=== PATIENT | female | born 1970 | race Caucasian/White ===

== ENCOUNTER 2024-09-30 09:15 | Outpatient (CLI) | payer OTHER, SELFPAY ==
--- OUTSIDE RECORDS SUMMARY | 2024-09-30 09:27 | XMS_ITS | Referral Summary ---
Author Organization [address] Address [address] [place] [id number] Care Team Providers Care Lead C Developer Name Role Phone Allen Carney MD Primary Care Provider [phone] Encounters Date Type Department Care Team Description 09/22/2024 4:15 PM CDT Office Visit [facility] Otolaryngology [address] [place] [phone] Jose Arango II, MD Right chronic serous otitis media (Primary Dx); Mixed conductive and sensorineural hearing loss of right ear with restricted hearing of left ear; Left chronic serous otitis media 09/22/2024 3:45 PM CDT Procedure visit [facility] Otolaryngology [address] [place] [phone] Carolin Waters Au.D. Mixed conductive and sensorineural hearing loss of left ear with restricted hearing of right ear (Primary Dx); Sensorineural hearing loss (SNHL) of right ear with restricted hearing of left ear 08/08/2024 11:30 AM CDT Office Visit [facility] Otolaryngology [address] [place] [phone] Jose Arango II, MD Right chronic serous otitis media (Primary Dx); Mixed conductive and sensorineural hearing loss of right ear with restricted hearing of left ear 08/08/2024 11:00 AM CDT Procedure visit [facility] Otolaryngology [address] [place] [phone] Norma Thompson Mixed conductive and sensorineural hearing loss of right ear with restricted hearing of left ear (Primary Dx) from Last 3 Months Allergies No known active allergies Medications No known medications Active Problems Problem Noted Date Diagnosed Date Left chronic serous otitis media 09/23/2024 Sensorineural hearing loss (SNHL) of both ears 1 06/10/2022 Right chronic serous otitis media 12/13/2021 Mixed conductive and sensori neural hearing loss of right ear with restricted hearing of left ear 12/13/2021 Social History Tobacco Use Types Packs/Day Years Used Date Smoking Tobacco: Never Smokeless Tobacco: Never Tobacco Cessation:Counseling Given: Not Answered Comments Unknown Sex and Gender Information Value Date Recorded Sex Assigned at Not on file Legal Sex Female 5:55 PM BILLET HEATER Gender Identity Not on file Sexual Orientation Not on file Last Filed Vital Signs Vital Sign Reading Time Taken Comments Blood Pressure - - Pulse - - Temperature 36.7 C (98 F) 04/22/2024 1:43 PM BILLET HEATER Respiratory Rate 18 09/22/2024 4:14 PM CDT Oxygen Saturation - - Inhaled Oxygen Concentration - - Weight 79.4 kg (175 lb) 09/22/2024 4:14 PM CDT Height 165.1 cm (5' 5 ) 09/22/2024 4:14 PM CDT Body Mass Index 29.12 09/22/2024 4:14 PM CDT Plan of Treatment Not on file Insurance CHOICE PLUS Care Teams Lead C Developer Relationship Specialty Start Date End Date Allen Carney MD [address] [place] [id number] PCP - General Family Medicine 09/05/22
--- OUTSIDE RECORDS SUMMARY | 2024-09-30 09:27 | XMS_ITS | Clinical Summary ---
Author Organization [facility] Address [address] [place] [address] Care Team Providers Care Brake Press Operator Name Role Phone Idania Caldwell PA-C Primary Care Provider [phone] Allergies No known active allergies Medications multi vitamin/minerals (THERA-M ENHANCED) tablet Take 1 tablet by mouth daily. Active predniSONE (DELTASONE) 10 mg tabletIndication s:Non-recurrent acute serous otitis media of both ears 2 pills twice daily for 3 days then 1 pill twice daily for 3 days then 1 pill daily for 2 days #20 20 tablet 08/17/2022 Active Active Problems No known active problems Family History Medical History Relation Comments Breast Cancer Neg Hx Social History Tobacco Use Types Packs/Day Years Used Date Smoking Tobacco: Never Smokeless Tobacco: Never Tobacco Cessation:Counseling Given: Not Answered Alcohol Use Standard Drinks/Week Comments Not Currently 0 (1 standard drink = 0.6 oz pur e alcohol) Comments No Sex and Gender Information Value Date Recorded Sex Assigned at Not on file Legal Sex Female 8:27 PM CDT Gender Identity Not on file Sexual Orientation Not on file Last Filed Vital Signs Vital Sign Reading Time Taken Comments Blood Pressure 127/81 08/17/2022 2:18 PM CDT Pulse 70 08/17/2022 2:18 PM CDT Temperature 37.2 C (99 F) 08/17/2022 2:18 PM CDT Respiratory Rate 18 08/17/2022 2:18 PM CDT Oxygen Saturation 100% 08/17/2022 2:18 PM CDT Inhaled Oxygen Concentration - - Weight 79.8 kg (176 lb) 08/17/2022 2:18 PM CDT Height 165.1 cm (5' 5 ) 08/17/2022 2:18 PM CDT Body Mass Index 29.29 08/17/2022 2:18 PM CDT Plan of Treatment Health Maintenance Due Date Last Done Comments Cervical Cancer Screening Pa p Smear (Age 30 to 64) Every 3 Years 1970 Colorectal Cancer Screening Colonoscopy (10 Years) 1970 Annual Physical 1973 Hepatitis C 1988 DTaP, Tdap and Td Vaccines ( 1 - Tdap) 1989 Hepatitis B Vaccines (1 of 3 - 19+ 3-dose series) 1989 Cervical Cancer Screening Pa p with HPV Testing (Age 30 to 64) Every 5 Years 2000 Cervical Cancer Screening wi th HPV 2000 Pneumococcal Vaccine: 50+ Years (1 of 1 - PCV) 2020 Zoster Vaccines (1 of 2) 2020 COVID-19 Vaccine (2 - 2023-2 5 season) 2024 09/17/2020 Mammogram Screening 11/06/2024 11/06/2022, 12/06/2020 Meningococcal B Vaccine Aged Out No l onger eligible based on patient's age to complete this topic Meningococcal Vaccine Aged Out No dayne ada eligible based on patient's age to complete this topic RSV Immunizations Under 20 Months Aged Out No longer eligible b ased on patient's age to complete this topic Procedures Procedure Name Priority Date/Time Associated Diagnosis Comments MG SCREENING W WINSOME YARED DIGI Routine 11/06/2022 3:55 PM CDT Encounter for screening mammogram for malignant neoplasm of breast from Last 3 Months or Most Recently Relevant to Health Maintenance Results * MG SCREENING W WINSOME YARED DIGI (11/06/2022 3:55 PM CDT) Anatomical Region Laterality Modality Breast Bilateral Mammography 11/06/2022 4:09 PM CDT Narrative 11/06/2022 4:15 PM CDT IMAGING STUDIES: Bilateral screening mammograms with computer-aided detection with 2-D and 3-D imaging. Tomosynthesis. DATE: 11/06/2022 3:26 PM HISTORY: Encounter for screening mammogram for malignant neoplasm of breast . COMPARISON: 11/29/2017. 12/06/2020. TISSUE TYPE: There are scattered areas of fibroglandular density. FINDINGS: 1. Mild scattered fibroglandular tissue pattern is present. Benign calcifications 2. No malignant microcalfcifications, new dominant masses, or architectural distortion. 3. No skin thickening or nipple retraction. Axillary regions are within normal limits. IMPRESSION: 1. No mammographic evidence of malignancy. 2. Assessment: ACR BI-RADS 1 - NEGATIVE 3 .Routine Screening Bilateral MQSA BI-RADS Categories: Category 0 - needs additional imaging evaluation. Category 1 - negative. Category 2 - benign findings. Category 3 - probably benign findings, but short interval follow-up is recommended. Category 4 - suspicious abnormality and biopsy should be considered though the lesion may well be benign. Category 5 - highly suggestive of malignancy and appropriate action should be taken. Category 6 - known biopsy-proven malignancy A) A negative report should not delay a biopsy if a dominant or clinically suspicious mass is present. B) Adenosis and dense breasts may obscure an underlying neoplasm. C) Study interpreted with computer aided detection. Ordered By: PREETI GEORGE Interpreted By: Fabien Collazo, 11/06/2022 4:09 PM Preeti George STAFFING OPERATIONS MANAGER MAMMO Final Result from Last 3 Months or Most Recently Relevant to Health Maintenance Insurance [facility] Care Teams Brake Press Operator Relationship Specialty Start Date End Date Idania Caldwell PA-C [address] [place], [place] [id number] [place] [address] PCP - General PHYSICIAN CARPENTER ASSISTANT INSTALLER 11/06/22
--- OUTSIDE RECORDS SUMMARY | 2024-09-30 09:27 | XMS_ITS | Clinical Summary ---
Author Organization [address] Address [address] [place] [address] Care Team Providers Care Quantitative Consultant Name Role Phone Allen Carney MD Primary Care Provider [phone] Allergies No known active allergies Medications No known medications Active Problems Problem Noted Date Diagnosed Date Left chronic serous otitis media 09/23/2024 Sensorineural hearing loss (SNHL) of both ears 1 06/10/2022 Right chronic serous otitis media 12/13/2021 Mixed conductive and sensori neural hearing loss of right ear with restricted hearing of left ear 12/13/2021 Encounters Date Type Department Care Team Description 09/22/2024 4:15 PM CDT Office Visit [facility] Otolaryngology [address] [place] [phone] Jose Arango II, MD Right chronic serous otitis media (Primary Dx); Mixed conductive and sensorineural hearing loss of right ear with restricted hearing of left ear; Left chronic serous otitis media 09/22/2024 3:45 PM CDT Procedure visit [facility] Otolaryngology [address] [place] [phone] Carolin Waters Au.D. Mixed conductive and sensorineural hearing loss of left ear with restricted hearing of right ear (Primary Dx); Sensorineural hearing loss (SNHL) of right ear with restricted hearing of left ear 08/08/2024 11:30 AM CDT Office Visit [facility] Otolaryngology [address] [place] [phone] Jose Arango II, MD Right chronic serous otitis media (Primary Dx); Mixed conductive and sensorineural hearing loss of right ear with restricted hearing of left ear 08/08/2024 11:00 AM CDT Procedure visit [facility] Otolaryngology [address] [place] [phone] Norma Thompson Mixed conductive and sensorineural hearing loss of right ear with restricted hearing of left ear (Primary Dx) from Last 3 Months Surgical History Surgery Date Site/Laterality Comments TONSILECTOMY, ADENOIDECTOMY, BILATERAL MYRINGOTOMY AND TUBES 05/21/1975 - 05/20/1976 SECTION MYRINGOTOMY W/ TUBES 09/07/2022 Right TYMPANOSTOMY TUBE PLACEMENT 08/08/2024 Right Medical History Medical History Date Comments Ear problems Tinnitus HL (hearing loss) Family History Medical History Relation Name Comments No Known Problems Father No Known Problems Mother Relation Name Status Comments Father Mother Social History Tobacco Use Types Packs/Day Years Used Date Smoking Tobacco: Never Smokeless Tobacco: Never Tobacco Cessation:Counseling Given: Not Answered Comments Unknown Sex and Gender Information Value Date Recorded Sex Assigned at Not on file Legal Sex Female 5:55 PM LONGWALL SHEARER OPERATOR Gender Identity Not on file Sexual Orientation Not on file Obstetrics History Last Filed Vital Signs Vital Sign Reading Time Taken Comments Blood Pressure - - Pulse - - Temperature 36.7 C (98 F) 04/22/2024 1:43 PM LONGWALL SHEARER OPERATOR Respiratory Rate 18 09/22/2024 4:14 PM CDT Oxygen Saturation - - Inhaled Oxygen Concentration - - Weight 79.4 kg (175 lb) 09/22/2024 4:14 PM CDT Height 165.1 cm (5' 5 ) 09/22/2024 4:14 PM CDT Body Mass Index 29.12 09/22/2024 4:14 PM CDT Plan of Treatment Health Maintenance Due Date Last Done Comments Cervical Cancer Screening 1970 Colon Cancer Screening-Colonoscopy 1970 Depression Screening 1970 Hepatitis C Screening 1970 DTaP/Tdap/Td Vaccine (1 - Tdap) 1981 Hepatitis B Screening 1988 Regular Well Visit/Exam 18-64 1988 Zoster Vaccine (1 of 2) 2020 Covid-19 Vaccine ( season) 2024 09/17/2020 Influenza Vaccine (Season Ended) 2025 Breast Cancer Screening-Mammogram 05/23/2025 05/23/2024, 11/06/2022, 11/06/2022, Additional history exists Pneumococcal vaccine <65 Aged Out No longer eligible based on patient's age to complete this topic Insurance [facility] CHOICE PLUS [facility] HMO/PPO Address: [place] [address] Care Teams Quantitative Consultant Relationship Specialty Start Date End Date Allen Carney MD [address] [place] [id number] PCP - General Family Medicine 09/05/22
--- OUTSIDE RECORDS SUMMARY | 2024-09-30 09:27 | XMS_ITS | Data Portability ---
Author Organization [facility] , [facility] Address [address] [place] [address] Assessment No assessment recorded. Plan of Treatment Reminders Order Date Submit Date Provider Last Modified By Organization Details Last Modified Time Details Appointments None recorded. Lab None recorded. Referral gastroenter ologist referral 2023 025 [facility] Kristel Caruso MD, [address], [place], [address], 13:09:31 Procedures None recorded. Surgeries None recorded. Imaging MAMMO, screening, tomosynthes is, bilateral 2024 025 G[facility] Not available 11:37:37 Medication Orders None recorded. Patient TargetsNo targets recorded. Patient Instructions Encounter Date Encounter Id Patient Instructions Last Modified By Organization Details Last Modified Time 11/20/2022 [id number] A healthy lifestyle: care instructions [email or web address] Not available 11/20/2022 09:59:12 calcium and vitamin D combination [email or web address] Not available 11/20/2022 09:59:12 depression (wome n only) [email or web address] Not available 11/20/2022 09:59:12 eating healthy foods: care instructions [email or web address] Not available 11/20/2022 09:59:12 exercise program : getting started [email or web address] Not available 11/20/2022 09:59:12 protect bone wit h calcium and vitamin D [email or web address] Not available 11/20/2022 09:59:12 osteoporosis education [email or web address] Not available 11/20/2022 09:59:12 breast self-exam : care instructions [email or web address] Not available 11/20/2022 09:59:12 Reason for Referral Mobile Equipment Operator Referral for Screening for malignant neoplasm of colon Referring Physician: Preeti George FIRE WATCHMAN, Encounter Date: 05/23/2024 Results Created Date Observation Date Name Description Value Unit Range Abnormal Flag Note LastModifiedBy Organization Detail LastModifiedTime 05/27/1905/23/2024 MAMMO , scree daniel, tomos ynthe sis, bilat eral No observ ation record ed. [email or web address] Not Available 2024 13:34:35 05/27/1905/23/2024 MAMMO , scree daniel, tomos ynthe sis, bilat eral No observ ation record ed. [email or web address] Not Available 2024 13:31:40 Result Notes None recorded. Problems No Known Problems Procedures Surgical History Date Name Laterality Status Provider Name and Address Organization Details Recorded Time Most Recent Mammogram completed [facility] 11/20/2022 09:43:31 Date of [facility] 05/23/2024 11:16:42 delivery completed [facility] 11/16/2022 09:27:47 LEEP completed [facility] 11/20/2022 09:43:41 Imaging Results Imaging Date Name Status LastModified by Organiz ation Details LastModified Time 05/23/2024 MAMMO, screening, tomosynthesis, bilateral completed [email or web address] Information not available 05/28/2024 13:34:35 05/23/2024 MAMMO, screening, tomosynthesis, bilateral completed [email or web address] Information not available 05/28/2024 13:31:40 Procedure Notes None recorded. Medical Equipment None Reported. Allergies Allergen ID Allergen Name Allergen Category Reaction Reaction Severity Criticality Documentation Date Start Date Code Code System Note Provider Name and Address Organization Details Recorded Time 826087 Product containin g penicilli n (product) medicatio n Not available Not available Not available 03/11/20212012 99123 8001 SNOMED Sever ity: Moder ate; Comme nt: Aller gy Delet ed On: 11/19; Not Available [facility] 2 08:43:25 Medications Name Sig Start Date Stop Date Status Note LastModified by Organization Details LastModified Time prednisone 10 mg tablet TAKE 2 TABLETS BY MOUTH TWICE DAILY FOR 3 DAYS THEN 1 TWICE DAILY FOR 3 DAYS THEN 1 ONCE DAILY FOR 2 DAYS 11/20 completed Not Available Not Available Not Available doxycycline hyclate 100 mg capsule TAKE 1 CAPSULE BY MOUTH TWICE DAILY FOR 10 DAYS 11/20 completed Not Available Not Available Not Available Zyrtec active Not Available Not Availa ble Not Available Vitals Date Recorded Body weight Body mass index (BMI) Body height Systolic blood pressure Diastolic blood pressure Provider Name and Address Organization Details Last Updated DateTime 11/20/2022 10431.63 g 30 kg/m2 165.1 cm 120 mm[Hg] 80 mm[Hg] Venice Mccloud [facility] 3 09:45:31 Date Recorded Body height Body mass index (BMI) Body weight Body temperature Systolic blood pressure Diastolic blood pressure Provider Name and Address Organization Details Last Updated DateTime 5 165.1 cm 30.6 kg/m2 80895.2 8 g 97.7 [degF] 118 mm[Hg] 78 mm[Hg] Ita Taco [facility] 5 11:22:06 Social History Question Answer Notes LastModified by Organizat ion Details LastModified Time Tobacco Smoking Status Never Smoker Venice Mccloud null, [facility] 11/20/2022 09:43:36 If You Are , What Was Your Level Of Alcohol Consumption Prior To ? Occasional Information not available 05/23/2024 How Many Years Have You Consumed Alcohol? 34 [email or web address] Information not available 11/20/2022 Are You Blind Or Do You Have Difficulty Seeing? No Information not available 05/23/2024 Are You Deaf Or Do You Have Serious Difficulty Hearing? No Information not available 05/23/2024 What Type Of Diet Are You Following? REGULAR [email or web address] Information not available 11/20/2022 How Many Children Do You Have? 4 [email or web address] Information not available 11/16/2022 Are There Any Occupational Health Risks Where You Work? No Information not available 05/23/2024 What Is Your Relationship Status? [email or web address] Information not available 11/16/2022 Are You Sexually Active? Yes [email or web address] Information not available 11/16/2022 What Types Of Sporting Activities Do You Participate In? Golf Information not available 05/23/2024 Sex: Unknown Functional Status Question Answer Note LastModified by Organizat ion Details LastModified Time Do you use any illicit or recreational drugs? No Information not available 05/23/2024 What is your level of alcohol consumption? Occasional [email or web address] Information not available 11/20/2022 Are you currently employed? Yes Information not available 05/23/2024 Do you or have you ever used e-cigarettes or vape? Never used electronic cigarettes [email or web address] Information not available 11/20/2022 What is your exercise level? Moderate [email or web address] Information not available 11/20/2022 Mental Status None recorded. Family History Relationship Description Onset Age of this Age Resolved Age Notes LastModified by Organization Details LastModified Time Father No current problems or disability [email or web address] Not available 10/20 09:27:34 Mother No current problems or disability [email or web address] Not available 10/20 09:27:34 Paternal Aunt Malignant tumor of cervix 60 [email or web address] Not available 2024 11:45:56 Medical History No medical history recorded. Gynecological History Statement/Question Response Flow Moderate Date of last HPV 12/06/2020 Date of LMP 03/29/2024 Duration of Flow (days) 5 Most Recent Mammogram 11/06/2022 Current Control Method Partner Vas ectomy Age at Menarche 13 Date of Last Colonoscopy Most Recent Bone Density Frequency of Cycle (Q days) 50-60 days Date of Last Pap Smear 12/08/2020 Obstetrics History GPAL:G 4 P 4 0 0 4 Type Value Full Term 4 Living 4 Total 4 Past Encounters Encounter ID Performer Location Encounter Start Date Encounter Closed Date Diagnosis/Indication Diagnosis SNOMED-CT Code Diagnosis ICD10 Code Diagnosis Note [id number] [facility] [address] [place] [address] 11/20/2022 09:42:26 11/20/2022 09:59:24 Gynecologic examination 76004475 Z01.419 51y.o. here for annual exam.- Pap up to date from 2020, discussed natural course of HPV infection, no new exposures. - Routine labs done with PCP- Mammo UTD- Colonoscop y encouraged - DEXA at age 65- RTO for annual or PRN Screening for osteoporosis 127764872 Z13.820 Screening mammography of bilateral breasts 4346743971 21712 Z12.31 Client advised to perform self-breas t exams and report any changes. Depression screening 171 Z13.31 PHQ9: Negative. Pt educated on normal scoring. No further management needed. [id number] CIERRA Cardozo [address] [address] 05/23/2024 11:01:49 05/26/2024 15:54:30 Gynecologic examination 91507028 Z01.419 Pt educated on ACOG and ASCCP guidelines for breast, ovarian, and cervical cancer screenings . Pap Hx: 11/2012 SEE Pt Case from 05/18/24, 02/2014 NILM, HPV neg, 11/2020 NILM, HPV neg. No pap collected today. Pt states understand ing and is amenable to POC. Screening for malignant neoplasm of breast 169073821 Z12.31 Pt educated on breast cancer screening guidelines , and reinforced the importance of staying after visit for completion of mammogram at [facility] office. Further POC pending radiology report review. Pt states understand ing of POC. Depression screening 171 Z13.31 PHQ9: 1. Pt educated on normal scoring, and discussed depression precaution s and when to notify HCP/go to ER. Screening for malignant neoplasm of colon 336355286 Z12.11 Pt educated on colon cancer screening guidelines . Pt encouraged to consider GI referral. Pt states understand ing of POC, and would like to proceed with referral. Pt case sent. Further POC per GI recommenda tions. Health Concerns Section Related Observation LastModified by Organization Detai ls LastModified Time None Recorded Concern Status LastModified by Organization Details LastModified Time None Recorded Advance Directives Directive None Recorded Payers Insurance Date Sequence Insurance Name Policy Number Policy Roberts Covered Member ID Roberts Member ID Guarantor Name 08/15/2024 1 [facility] [id number] Karmen Quiroz [id number] Karmen Quiroz Notes Date Note Type Note Provider Name and Address Organization Details Recorded Time 11/20/2022 text/html Annual GYNReport ed bypatient.Menstrual cycle:Normal menses Urinary symptoms:No hematuria; No incontinence Vulva:No genital lesion Vagina:Normal vaginal discharge Breast:No breast pain; No breast lump; No nipple discharge Sexual complaints:No sexual complaints; No pain during intercourse; Normal libido Menopausal Symptoms:No menopausal symptoms; Normal vaginal lubrication Psychological symptoms:No depression; No anxiety; No PMDD Karmen is here for her AEXHer last pap was 12/08/20 Neg/HPV NegShe is UTD on her mammogramShe is due for her colonoscopy Ashleigh aCstillo [facility] [address] [facility], [place], [address], [facility] 11/20/2022 09:59:18 05/23/2024 text/html Annual GYNReport ed bypatient.Menstrual cycle:Normal menses Urinary symptoms:No hematuria; No incontinence Vulva:No genital lesion Vagina:Normal vaginal discharge Breast:No breast pain; No breast lump; No nipple discharge Sexual complaints:No sexual complaints; No pain during intercourse; Normal libido Menopausal Symptoms:No menopausal symptoms; Normal vaginal lubrication Psychological symptoms:No depression; No anxiety; No PMDD Pt presents to office today for her annual well woman exam. Pt states she is doing well. Pt states since last visit her cycles have started to space where she bleeds every other month. Pt states bleeding is shorter in length of time; just a few days. Pt denies bleeding > 1 pad/hour. Pt is not on any hormonal therapy. Partner is s/p vasectomy for contraception. Last Pap: 11/2020 NILM, HPV neg. Pt is overdue for mammogram; has scheduled at [facility] after [employer] today. Pt has never completed colon cancer screenings, but is interested in referral. Pt has no personal history of cancer, but does have a family h/o cervical cancer in paternal aunt. Pt declines STD screening via culture and serum testing. Pt does have PCP in [place], [place] who she sees intermittently for health promotion and screenings. Pt has no other concerns. CIERRA Cardozo [address] [facility], [place], [address], [facility] 05/25/2024 11:29:40 OBGyn Episode No OBEpisode recorded.
[2024-09-30 09:48] LABS: Alanine Aminotransferase 21 U/L (6-35); Aspartate Amino Transferase 31 U/L (14-36)
== END 2024-09-30 09:16 | disposition home or self-care (01) ==
LOC: ANHLAB 09:20
PROVIDERS: PCP Physician Assistant Medical; Visit Provider Podiatrist Foot & Ankle Surgery
DX: B35.1 Tinea unguium (principal)
CPT/HCPCS: 36415; 84450; 84460

== ENCOUNTER 2024-12-17 10:04 | Outpatient (CLI) | payer OTHER, SELFPAY ==
--- OUTSIDE RECORDS SUMMARY | 2024-12-17 10:32 | XMS_ITS | Clinical Summary ---
Author Organization [facility] Address [address] [place] [address] Care Team Providers Care Apprentice Embalmer Name Role Phone Idania Caldwell PA-C Primary Care Provider [phone] Allergies No known active allergies Medications multi [...] 2:18 PM CDT Height 165.1 cm (5' 5) 08/17/2022 2:18 PM CDT Body Mass Index [...] Fabien Collazo, 11/06/2022 4:09 PM Preeti George [employer] Final Result from Last 3 Months or Most Recently Relevant to Health Maintenance Insurance [facility] Care Teams Apprentice Embalmer Relationship Specialty Start Date End Date Idania Caldwell PA-C [address] [place], [place] [id number] [place] [address] PCP - General PHYSICIAN DATA ENTRY MACHINE OPERATOR 11/06/22
--- OUTSIDE RECORDS SUMMARY | 2024-12-17 10:32 | XMS_ITS | Clinical Summary ---
Author Organization [facility] [address] Address [address] [place] [address] Care Team Providers Care System Dispatcher Name Role Phone Allen Carney MD Primary Care Provider [phone] Allergies No known active allergies Medications No known medications Active Problems Problem Noted Date Diagnosed Date Left chronic serous otitis media 09/23/2024 Sensorineural hearing loss (SNHL) of both ears 1 06/10/2022 Right chronic serous otitis media 12/13/2021 Mixed conductive and sensori neural hearing loss of right ear with restricted hearing of left ear 12/13/2021 Encounters Date Type Department Care Team Description 11/11/2024 9:45 AM CDT Office Visit [facility] [address] [facility] [address], [address] [place] [address] Jose Arango II, MD Mixed conductive and sensorineural hearing loss of right ear with restricted hearing of left ear (Primary Dx); Left chronic serous otitis media; Right chronic serous otitis media 09/22/2024 4:15 PM CDT Office Visit [facility] [address] [place] [id number] Jose Arango II, MD Right chronic serous otitis media (Primary Dx); Mixed conductive and sensorineural hearing loss of right ear with restricted hearing of left ear; Left chronic serous otitis media 09/22/2024 3:45 PM CDT Procedure visit [facility] [address] [place] [id number] Carolin Waters Au.D. 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 Gender Identity Not on file Sexual Orientation Not on file Obstetrics History Last Filed Vital Signs Vital Sign Reading Time Taken Comments Blood Pressure - - Pulse - - Temperature 36.7 C (98 F) 04/22/2024 1:43 PM DESK SERGEANT Respiratory Rate 17 11/11/2024 3:24 PM CDT Oxygen Saturation - - Inhaled Oxygen Concentration - - Weight 79.4 kg (175 lb) 11/11/2024 3:24 PM CDT Height 165.1 cm (5' 5) 11/11/2024 3:24 PM CDT Body Mass Index 29.12 11/11/2024 3:24 PM CDT Plan of Treatment Health Maintenance Due Date Last Done Comments Cervical Cancer Screening 1970 Colon Cancer Screening-Colonoscopy 1970 Depression Screening 1970 Hepatitis C Screening 1970 DTaP/Tdap/Td Vaccine (1 - Tdap) 1981 Hepatitis B Screening 1988 Regular Well Visit/Exam 18-64 1988 Zoster Vaccine (1 of 2) 2020 Covid-19 Vaccine (2 - season) 2024 09/17/2020 Influenza Vaccine (#1) 2025 Breast Cancer Screening-Mammogram 05/23/2025 05/23/2024, 11/06/2022, 11/06/2022, Additional history exists Pneumococcal vaccine <65 Aged Out No longer eligible based on patient's age to complete this topic Insurance [facility] [employer] Care Teams System Dispatcher Relationship Specialty Start Date End Date Allen Carney MD [address] [place] [id number] PCP - General Family Medicine 09/05/22
--- OUTSIDE RECORDS SUMMARY | 2024-12-17 10:32 | XMS_ITS | Referral Summary ---
Author Organization [address] Address [address] [place] [address] Care Team Providers Care Air Drill Operator Name Role Phone Allen Carney MD Primary Care Provider [phone] Encounters Date Type Department Care Team Description 11/11/2024 9:45 AM CDT Office Visit [facility] [address] [facility] [address], [address] [place] [address] Jose Arango II, MD Mixed conductive and sensorineural hearing loss of right ear with restricted hearing of left ear (Primary Dx); Left chronic serous otitis media; Right chronic serous otitis media 09/22/2024 4:15 PM CDT Office Visit [facility] [address] [place] [phone] Jose Arango II, MD Right chronic serous otitis media (Primary Dx); Mixed conductive and sensorineural hearing loss of right ear with restricted hearing of left ear; Left chronic serous otitis media 09/22/2024 3:45 PM CDT Procedure visit [facility] [address] [place] [phone] Carolin Waters Au.D. 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 Gender Identity Not on file Sexual Orientation Not on file Last Filed Vital Signs Vital Sign Reading Time Taken Comments Blood Pressure - - Pulse - - Temperature 36.7 C (98 F) 04/22/2024 1:43 PM SOCIAL MEDIA CAMPAIGN MANAGER Respiratory Rate 17 11/11/2024 3:24 PM CDT Oxygen Saturation - - Inhaled Oxygen Concentration - - Weight 79.4 kg (175 lb) 11/11/2024 3:24 PM CDT Height 165.1 cm (5' 5) 11/11/2024 3:24 PM CDT Body Mass Index 29.12 11/11/2024 3:24 PM CDT Plan of Treatment Not on file Insurance [address] [id number] Care Teams Air Drill Operator Relationship Specialty Start Date End Date Allen Carney MD [address] [place] [id number] PCP - General Family Medicine 09/05/22
[2024-12-17 11:19] LABS: Alanine Aminotransferase 17 U/L (6-35); Aspartate Amino Transferase 43 U/L (14-36)
== END 2024-12-17 10:05 | disposition home or self-care (01) ==
LOC: ANHLAB 10:06
PROVIDERS: PCP Physician Assistant Medical; Visit Provider Podiatrist Foot & Ankle Surgery
DX: B35.1 Tinea unguium (principal)
CPT/HCPCS: 36415; 84450; 84460